=== PATIENT | male | born 1930 | race Caucasian/White ===

== ENCOUNTER 2018-04-29 12:31 | Inpatient (IN) | payer OTHER ==
[~2018-04-29] VITALS: Ht 170.2 cm; Wt 57.2 kg
[~2018-04-29 12:31] MED LIST: AMLO5TAB92 PO; EZET1TAB29 PO; ZOLP12.52 PO
[2018-04-29 12:40] VITALS: BP_SYST 108
--- NOTE | 2018-04-29 12:40 | NUR ---
Placed in room 3 . Placed on surveillance system monitor, blood pressure machine and pulse oximeter. To gown for exam. Side rails up.
--- NOTE | 2018-04-29 12:42 | NUR ---
Pt presents to ER c/o SOB, general weakness, poor appetite, constipation, mild abdominal pain 3/10 on pain scale. Pt denies chest pain or nausea and vomiting. Pt does not appear to be in acute respiratory distress, pt still speaking full sentences, AOX4.
--- NOTE | 2018-04-29 13:10 | NUR ---
ER at bedside examining patient.
[2018-04-29] MEDS ORDERED: ASPIRIN 81 MG TAB.CHEW PO ONE (13:15)
--- NOTE | 2018-04-29 13:25 | NUR ---
20g LAC PIV; good blood return noted; labs drawn and sent to lab; pt livier
--- NOTE | 2018-04-29 13:25 | NUR ---
20g LAC PIV; good blood return noted; blood labs drawn and sent to lab; pt livier and family at bedside ASA 81mg PO given as ordered; will continue to monitor
[2018-04-29 13:40] LABS: BASOPHILS % (AUTO) 0.3 % (0.0-2.0); EOSINOPHILS # (AUTO) 0.3 K/uL (0.0-0.4); HEMATOCRIT 42.7 % (36-54); HEMOGLOBIN 14.6 g/dL (14.0-18.0); LYMPHOCYTES # (AUTO) 1.1 K/uL (1.0-5.5); LYMPHOCYTES % (AUTO) 11.5 % (20.5-51.5); MEAN CORPUSCULAR HEMOGLOBIN 34 pg (27-31); MEAN CORPUSCULAR HGB CONC 34 % (32-36); MEAN CORPUSCULAR VOLUME 99 fL (79.0-98.0); MONOCYTES # (AUTO) 1.1 K/uL (0.0-1.0); MONOCYTES % (AUTO) 10.6 % (1.7-9.3); NEUTROPHILS # (AUTO) 7.5 K/uL (1.8-7.7); NEUTROPHILS % (AUTO) 74.6 % (40.0-70.0); PLATELET COUNT (AUTO) 362 K/uL (130-430); RED CELL DISTRIBUTION WIDTH 12.7 % (9.0-15.0)
[2018-04-29 13:48] LABS: ANION GAP 13 (5-15); CALCIUM 9.6 mg/dL (8.4-11.0); CHLORIDE 101 mmol/L (98-107); CREATININE 3.55 mg/dL (0.55-1.30); GLUCOSE 116 mg/dL (70-99); SODIUM SERUM 136 mmol/L (136-145); UREA NITROGEN, BLOOD 75 mg/dL (8-21)
[2018-04-29 13:53] LABS: ALANINE AMINOTRANSFERASE 20 U/L (12-78); ASPARTATE AMINOTRANSFERASE 21 U/L (10-37); TOTAL BILIRUBIN 0.7 mg/dL (0.0-1.0)
[2018-04-29 13:57] LABS: INR 1.1 (0.80-1.20); PROTHROMBIN TIME 11.3 SECS (9.5-12.5)
[2018-04-29] MEDS ORDERED: CALC667T5 PO (14:18)
[2018-04-29] MEDS ORDERED: AMLO2.5T2 PO (14:18)
[2018-04-29] MEDS ORDERED: TRAZ-123 PO (14:18)
[2018-04-29] MEDS ORDERED: DORZ10DR8 OP (14:18)
[2018-04-29] MEDS ORDERED: BRI.2% OP (14:18)
[2018-04-29] MEDS ORDERED: LIP40 PO (14:18)
[2018-04-29] MEDS ORDERED: TRAV2.5D OP (14:18)
[2018-04-29] MEDS ORDERED: VITD2000 PO (14:22)
--- NOTE | 2018-04-29 14:23 | NUR ---
Medication reconciliation completed with information provided by pt. Any prior medication reconciliation on file was reviewed and corrected.
--- NOTE | 2018-04-29 15:05 | NUR ---
Transfer to tele via ACLS protocol. Licensed nurse present. IV present no signs or symptoms of infiltration.
--- NOTE | 2018-04-29 15:05 | NUR ---
Patient will be admitted to care of Dr. Simpson. Admitted to tele unit. Will go to room 122b. Belongings list completed. Summary report printed. Report will be given at bedside.
--- NOTE | 2018-04-29 15:29 | NUR ---
Admission Note Received patient from ER with diagnosis of RENAL FAILURE. Initial Plan of Care discussed-patient verbalized understanding. Family at bedside. Oriented to room, call light, pain management and safety.
[2018-04-29 15:40] VITALS: BP_SYST 159
--- NOTE | 2018-04-29 15:49 | NUR ---
CONSULTATION PAGED/CALLED Reason for Consultation: [] ACUTE RENAL FAILURE; ELEVATED BUN AND CREA Person Who was Notified: [] DR Marcelino RENEE Consulting Physician: [] DR Marcelino RENEE Sales Counselor Specialty: [] NEPHROLOGY Ordering Physician: [] DR Jasbir NAQVI
--- NOTE | 2018-04-29 16:11 | NUR ---
RN Note Dr. Simpson called for orders. Will follow up.
--- NOTE | 2018-04-29 16:11 | NUR ---
ATTENDING MD DR NAQVI WAS PAGED RE: DIET ORDER. SPOKE TO DEON
--- NOTE | 2018-04-29 17:23 | NUR ---
REPAGED ATTENDING MD DR NAQVI RE: DIET ORDER AND BREATHING TX. SPOKE TO VITO
--- NOTE | 2018-04-29 17:25 | NUR ---
Rounds Spoke with Dr. Simpson. Orders were received.
[2018-04-29] MEDS ORDERED: IPRATROPIUM/ALBUTEROL SULFATE 3 ML AMPUL.NEB INH PRN (18:00)
--- NOTE | 2018-04-29 18:50 | NUR ---
Closing Note Patient is resting in bed. IV is on the LAC 20g saline locked. 02 is at 2l via NC. Patient is having labored breathing at the moment. Dr. Simpson was made aware. Currently waiting for ABG results. Call light is within reach and bed is in low position. Will endorse care to the oncoming nurse.
--- NOTE | 2018-04-29 19:30 | NUR ---
OPENING NOTE PT RECEIVED FROM OUTGOING SHIFT. PT IN BED, AWAKE, ALERT, ORIENTED. INITIALLY OBSERVED WITH USE OF ACCESSORY MUSCLES WITH BREATHING, APPEARS DISTRESSED ON ROOM AIR. PT IS PLACED ON 2L OXYGEN VIA NASAL CANNULA AND SHOWS SOME IMPROVEMENT. PT OTHERWISE DENIES FEELING OF DISTRESS, NO COMPLAINT OF PAIN OR DISCOMFORT. SINUS RHYTHM ON THE CUSTOMER DEVELOPMENT REPRESENTATIVE WITH 1ST DEGREE AV BLOCK. WILL CONTINUE TO OBSERVE THROUGH SHIFT.
[2018-04-29 20:00] VITALS: BP_SYST 171
[2018-04-29] MEDS ORDERED: LEVOFLOXACIN 500 MG/D5W 100 ML IV ONE ×2 (20:00→23:09)
[2018-04-29] MEDS ORDERED: ACETAMINOPHEN 650 MG/20.3 ML UDC PO PRN (20:00)
[2018-04-29] MEDS ORDERED: cloNIDine HCL 0.1 MG TABLET PO PRN (20:00)
[2018-04-29] MEDS: ATORVASTATIN 20 MG TABLET PO SCH (20:58)
[2018-04-29] MEDS: amLODIPine BESYLATE 10 MG TABLET PO SCH (20:58)
[2018-04-29] MEDS: methylPREDNISolone SOD SUCC/PF 62.5 MG/ML VIAL IVP SCH (20:58)
[2018-04-29] MEDS: traZODone HCL 50 MG TABLET (DESYREL) PO SCH (20:58)
[2018-04-29] MEDS ORDERED: amLODIPine BESYLATE 10 MG TABLET ONE (20:59)
[2018-04-29] MEDS: BRIMONIDINE TARTRATE 0.2% 5 mL EYE DROPS OP SCH (21:00)
[2018-04-29] MEDS ORDERED: methylPREDNISolone SOD SUCC/PF 62.5 MG/ML VIAL ONE (21:01)
[2018-04-29] MEDS: D5NS 1,000 ML IV SCH (21:22)
[2018-04-29 22:00] VITALS: BP_SYST 171
--- NOTE | 2018-04-29 22:00 | NUR ---
IV ACCESS INITIATED NEW IV ACCESS ON LEFT FOREARM 20G IN 2 ATTEMPTS. PT TOLERATED PROCEDURE WELL. ACCESS PLACED FOR EASE OF IV INFUSION.
[2018-04-29] MEDS ORDERED: LEVOFLOXACIN 250 MG/D5W 50 ML IV ONE (22:42)
--- NOTE | 2018-04-29 23:22 | NUR ---
CONSULTATION PAGED REASON FOR CONSULTATION: HYPOXIA WAS CONSULT CALLED? Y PERSON WHO WAS NOTIFIED: ROCKY CONSULTING PHYSICIAN: DR. HOWARD CONSULTING PHYSICIAN'S NUMBER: [phone] ORDERING PHYSICIAN: DR. RENEE
[2018-04-29 23:30] VITALS: BP_SYST 90
--- NOTE | 2018-04-29 23:30 | NUR ---
PT CONDITION OBSERVED HEART RATE FLUCTUATING FROM 40'S TO 50'S. OBSERVED AN IRREGULAR RHYTHM WITH WHAT APPEARS TO BE CONSISTENT WITH 1ST DEGREE HEART BLOCK, AN OCCASIONAL NON-CONDUCTIVE P WAVE, AND PAC'S. BLOOD PRESSURE DROP OBSERVED TO 90/48 AFTER RECEIVING CLONIDINE AND NORVASC FOR PREVIOUSLY ELEVATED BLOOD PRESSURE. PT IS ASYMPTOMATIC CLAIMING TO FEEL "NO DIFFERENT" WILL CONTINUE TO MONITOR AND OBSERVE CLOSELY.
[2018-04-30] VITALS (7 sets, daily range): BP systolic 92–121
[2018-04-30] MEDS: methylPREDNISolone SOD SUCC/PF 62.5 MG/ML VIAL IVP SCH ×4 (00:09→21:19)
--- NOTE | 2018-04-30 01:30 | NUR ---
ROUNDS CHECKED PATIENT'S BLOOD PRESSURE. REMAINS STABLE AT LOW. REMAINS ASYMPTOMATIC. WILL CONTINUE TO OBSERVE.
--- NOTE | 2018-04-30 03:30 | NUR ---
ROUNDS PT IN BED SLEEPING. NO SIGNS OF DISTRESS, NO PAIN OR DISCOMFORT. NO CHANGES/DIFFERENCES IN HR/BP. PT REMAINS ASYMPTOMATIC. WILL CONTINUE TO OBSERVE.
--- NOTE | 2018-04-30 05:30 | NUR ---
ROUNDS PT IN BED SLEEPING. NO SIGNS OF DISTRESS, NO PAIN OR DISCOMFORT. NO CHANGES/DIFFERENCES IN HR/BP. PT REMAINS ASYMPTOMATIC. WILL CONTINUE TO OBSERVE.
--- NOTE | 2018-04-30 06:40 | NUR ---
CLOSING NOTE PT IN BED, RESTING. NO SIGNS OF DISTRESS, NO COMPLAINT OF PAIN OR DISCOMFORT. BLOOD PRESSURE REMAINS LOW, STABLE. PT IS ASYMPTOMATIC. CARE TO RESUME TO NEXT SHIFT.
[2018-04-30 06:41] LABS: BASOPHILS % (AUTO) 0.1 % (0.0-2.0); EOSINOPHILS % (AUTO) 0.3 % (0.0-4.0); HEMATOCRIT 38.3 % (36-54); HEMOGLOBIN 13.1 g/dL (14.0-18.0); LYMPHOCYTES # (AUTO) 0.5 K/uL (1.0-5.5); LYMPHOCYTES % (AUTO) 7.8 % (20.5-51.5); MEAN CORPUSCULAR HEMOGLOBIN 34 pg (27-31); MEAN CORPUSCULAR HGB CONC 34 % (32-36); MEAN CORPUSCULAR VOLUME 100 fL (79.0-98.0); MONOCYTES # (AUTO) 0.1 K/uL (0.0-1.0); MONOCYTES % (AUTO) 1.3 % (1.7-9.3); NEUTROPHILS # (AUTO) 6.4 K/uL (1.8-7.7); NEUTROPHILS % (AUTO) 90.5 % (40.0-70.0); PLATELET COUNT (AUTO) 298 K/uL (130-430); RED BLOOD CELL COUNT(AUTO) 3.83 MIL/uL (4.2-6.2); RED CELL DISTRIBUTION WIDTH 12.7 % (9.0-15.0)
[2018-04-30 06:52] LABS: ALANINE AMINOTRANSFERASE 18 U/L (12-78); ALBUMIN 2.5 g/dL (3.4-4.8); ANION GAP 15 (5-15); ASPARTATE AMINOTRANSFERASE 24 U/L (10-37); CALCIUM 8.3 mg/dL (8.4-11.0); CHLORIDE 101 mmol/L (98-107); CREATININE 3.63 mg/dL (0.55-1.30); GLUCOSE 194 mg/dL (70-99); PHOSPHORUS 4.7 mg/dL (2.7-4.5); SODIUM SERUM 136 mmol/L (136-145); TOTAL BILIRUBIN 0.6 mg/dL (0.0-1.0); UREA NITROGEN, BLOOD 77 mg/dL (8-21)
[2018-04-30 06:57] LABS: INR 1.1 (0.80-1.20); PROTHROMBIN TIME 11.5 SECS (9.5-12.5)
--- NOTE | 2018-04-30 07:45 | NUR ---
OPENING NOTE: MORNING REPORT WAS TAKEN FROM SOFTWARE PROGRAMMER NURSE. PATIENT IS ALERT AND ORIENTED X4. PATIENT IS AWAKE. VITALS AND MORNING ASSESSMENT WAS DONE. PATIENT NOT COMPLAINING OF SHORTNESS OF BREATH. PATIENT ON 2L NC. PATIENT NOT COMPLAINING OF COUGH. PATIENT NOT COMPLAINING OF NAUSEA/VOMITING. PATIENT SAID HE JUST HAS A SORE THROAT. FLUIDS ARE INFUSING. BED ALARM IS ON AND CALL LIGHT IS IN REACH. WILL CONTINUE TO MONITOR.
[2018-04-30] MEDS ORDERED: amLODIPine BESYLATE 5 MG TABLET PO SCH (09:00)
[2018-04-30] MEDS: amLODIPine BESYLATE 10 MG TABLET PO SCH (09:00)
[2018-04-30] MEDS: BRIMONIDINE TARTRATE 0.2% 5 mL EYE DROPS OP SCH ×3 (09:00→21:19)
--- NOTE | 2018-04-30 09:14 | NUR ---
NOTE: WENT TO GIVE PATIENT MORNING EYE DROPS BUT PATIENT SAID HE ALREADY TOOK HIS EYE DROPS. SOME ONE TOLD HIM THAT HE WOULD TAKE HIS OWN EYE DROPS AND THAT HIS OTHER MEDICATIONS TO TAKE HOME. DID NOT GIVE EYE DROPS. WILL PUT EYE DROPS IN [facility] AND TRY TO GET DR TO VERIFY SO PATIENT CAN TAKE THOSE HOME TOO. Addendum: 04/30/18 at 0917 by Lily Dietz RN TOLD DR. REENE ABOUT PATIENT'S BLOOD PRESSURE AND ASKED HIM IF HE WANTED ME TO GIVE NORVASC. SAID NOT TO GIVE.
[2018-04-30] MEDS ORDERED: TUBERCULIN,PURIF.PROT.DERIV. 0.1 ML SYR ID ONE (09:15)
--- NOTE | 2018-04-30 09:17 | NUR ---
CONSULTATION CALLED REASON FOR CONSULTATION:PERMCATH PLACEMENT WAS CONSULT CALLED?Y PERSON WHO WAS NOTIFIED:RAQUEL CONSULTING PHYSICIAN:ROBERTO TUBBS QUILTING MACHINE OPERATOR SPECIALTY:SURGEON QUILTING MACHINE OPERATOR PHONE NUMBER:[phone] ORDERING PHYSICIAN:GIGI BARGER
--- NOTE | 2018-04-30 09:24 | NUR ---
NOTE: DR. VARMA CALLED AND SAID TO HAVE PATIENT NPO FROM NOW AND GET CONSENT FOR TUNNELED CATH. PROCEDURE WILL BE LATER ON TODAY.
--- NOTE | 2018-04-30 10:36 | NUR ---
Nutrition Update Neo Scale 16 noted. Pt admitted for renal failure. Diet: NPO BMI: 15.8 kg/m2 RD to follow per nutrition care standards.
--- NOTE | 2018-04-30 10:38 | NUR ---
CONSULTATION CALLED REASON FOR CONSULTATION:COPD WAS CONSULT CALLED?Y PERSON WHO WAS NOTIFIED:ROCKY CONSULTING PHYSICIAN:ARSALAN GABRIEL JAVA SUPPORT ENGINEER SPECIALTY:PULMONARY JAVA SUPPORT ENGINEER PHONE NUMBER:[phone] ORDERING PHYSICIAN:DOM FARMER
--- NOTE | 2018-04-30 11:15 | NUR ---
NOTE: PATIENT LEFT TO CT. PATIENT BEING TRANSFERRED TO ROOM 108 WHILE GONE.
--- NOTE | 2018-04-30 11:40 | NUR ---
NOTE: PATIENT BACK FROM CT IN ROOM 108. HOOKED PATIENT UP TO FLUIDS. BED ALARM ON AND CALL LIGHT IN REACH. WILL CONTINUE TO MONITOR.
--- NOTE | 2018-04-30 11:55 | NUR ---
NOTE: PATIENT WAS COMPLAINING OF SEVERE PAIN. GAVE PAIN MEDICATION. PATIENT HAS NO FURTHER REQUEST AT MOMENT. WILL CONTINUE TO MONITOR. Addendum: 04/30/18 at 1331 by Lily Dietz RN WRONG PATIENT
[2018-04-30] MEDS: D5NS 1,000 ML IV SCH (12:44)
--- NOTE | 2018-04-30 12:55 | NUR ---
NOTE: CALL FROM CT THAT PATIENT HAD CRITICAL CT RESULTS. DID NOT TELL ME WHAT WAS CRITICAL ABOUT IT THOUGH.
--- NOTE | 2018-04-30 14:25 | NUR ---
: DR. HOWARD AWARE OF PATIENT'S CT RESULTS.
--- NOTE | 2018-04-30 15:13 | NUR ---
NOTE: WENT TO GIVE PATIENT EYE DROPS THAT WERE SCHEDULED. PATIENT REFUSED AND SAID HE TAKES THEM AT 9 AT NIGHT. WILL LET KNOW.
--- NOTE | 2018-04-30 15:41 | NUR ---
NOTE: PATIENT LEFT FOR SURGERY ON 2L NC.
--- NOTE | 2018-04-30 16:15 | NUR ---
NOTE: PATIENT BACK FROM OR. DIDNT DO PROCEDURE AFTER ALL. SAID HAD AN EMERGENCY AND WILL PROBABLY DO IT LATER.
--- NOTE | 2018-04-30 17:20 | NUR ---
NOTE: WAS NOTIFIED THAT SURGERY WILL BE SCHEDULED FOR TOMORROW MORNING INSTEAD.
--- NOTE | 2018-04-30 19:15 | NUR ---
OPENING NOTES Late entry due to patient care. Bedside report received from day shift nurse. Patient received lying in bed, HOB raised, AOx4. Patient denies any pain at this time. Nasal canula attached properly, on 2L of oxygen, no SOB, breathing even and unlabored. Call light with patient, instructed to call for any assistance, patient verbalized understanding. Bed alarm is on. IVF infusing well, IV site shows no sings of infection or infiltration. Urinal within reach. All of patient's needs met at this time. Will continue to monitor.
--- NOTE | 2018-04-30 19:37 | NUR ---
CLOSING NOTE: GAVE REPORT TO ACQUISITION SPECIALIST NURSE. PATIENT ON 2L NC NOT COMPLAINING OF SHORTNESS OF BREATH. PATIENT HAS FLUIDS INFUSING. PATIENT HAS SCD'S ON. ENDORSED TO ACQUISITION SPECIALIST NURSE THAT PATIENT HAD TB/PPD TEST TODAY AND SHOULD BE READ THURSDAY. CIRCLED AREA WHERE BUBBLE WAS. PATIENT SCHEDULED FOR SURGERY TOMORROW. PAPERS SIGNED. VISITOR AT BEDSIDE. BED ALARM IS ON AND CALL LIGHT IS IN REACH.
--- NOTE | 2018-04-30 21:00 | NUR ---
ROUNDS Patient in bed at this time. Patient's son, Robbin, present at bedside. Patient shows no s/s of acute distress. Patient denies any pain. Breathing is even and unlabored. Call light with patient. Bed alarm is on. Will continue to monitor.
[2018-04-30] MEDS: ATORVASTATIN 20 MG TABLET PO SCH (21:20)
[2018-04-30] MEDS: traZODone HCL 50 MG TABLET (DESYREL) PO SCH (21:20)
--- NOTE | 2018-04-30 23:00 | NUR ---
ROUNDS Patient in bed watching TV. No signs of discomfort noted. HOB raised, nasal canula attached properly, on 2L of oxygen. Chest rise and fall even bilaterally. Call light with patient. Bed alarm on. Will continue to monitor.
--- NOTE | 2018-05-01 | NUR ---
NPO/ROUNDS Patient in bed resting at this time. NPO cone placed at patient's bedside table. Patient informed that he is now NPO in preparation for tomorrow's operation, patient verbalized understanding. RN, removed all fluids on bedside table. Patient shows no s/s of acute distress, denies any pain. Breathing is even and unlabored. Nasal canula attached properly. Call light with patient. Bed alarm on. Will continue to monitor.
[2018-05-01 00:07] VITALS: BP_SYST 113
--- NOTE | 2018-05-01 01:35 | NUR ---
ROUNDS Patient in bed sleeping at this time. NO signs of discomfort noted. Chest rise and fall even bilaterally. Call light within reach. Bed alarm on. Will continue to monitor.
[2018-05-01] MEDS: D5NS 1,000 ML IV SCH ×2 (02:55→22:39)
--- NOTE | 2018-05-01 03:00 | NUR ---
LOW HEART RATE Tech monitor informed RN that heart rate is at 35-40 beats per minute. RN woke patient up, patient AOx4, denies any pain, denies any dizziness or light headedness. Patient states "I feel fine". Call light with patient, instructed to call for any assistance, patient verbalized understanding. Bed alarm is on. Bed is locked and at lowest position. Will continue to monitor and reassess.
--- NOTE | 2018-05-01 05:00 | NUR ---
ROUNDS Patient in bed awake, denies any pain. No signs of discomfort noted. Nasal canula attached properly, on 2L oxygen. Chest rise and fall even bilaterally. IVF infusing well. SCDs attached, operating. Call light with patient, bed alarm on. Bed is locked and at lowest position. Will continue to monitor.
[2018-05-01] MEDS: methylPREDNISolone SOD SUCC/PF 62.5 MG/ML VIAL IVP SCH ×2 (05:17→20:33)
--- NOTE | 2018-05-01 06:28 | NUR ---
CLOSING NOTES Patient in bed resting at this time. No s/s of acute distress noted. Breathing is even and unlabored. IVF infusing well. IV sites are patent, no signs of infection or infiltration. SCDs attached and operating. HOB raised. All of patient's needs met throughout shift. Fall and safety precautions maintained throughout shift. Will continue to monitor until patient care is endorsed to oncoming day shift nurse.
--- NOTE | 2018-05-01 07:30 | NUR ---
AM ROUNDS: PATIENT AWAKE DURING ROUNDS. REPORT GIVEN BY NIGHT NURSE BEAU. CALL LIGHT WITH IN REACH. BED LOCKED AT LOWEST POSITION. NEEDS ATTENDED TO. Addendum: 05/01/18 at 0808 by Sharon Deal RN CORRECTED ABOVE NOTES: CORRECT NURSE WAS ALEX FROM TUBE SPLICER.
[2018-05-01 08:00] VITALS: BP_SYST 113
--- NOTE | 2018-05-01 08:03 | NUR ---
OR: TO OR PER KELSI,PATIENT IN STABLE CONDITION.PREOP CHECK LIST DONE.CHG DONE BY INTERNAL AUDIT SENIOR MANAGER.BEDSIDE REPORT GIVEN TO RICHY OR NURSE.
[2018-05-01] MEDS ORDERED: POLYMYXIN 500,000/BACIT.10,000 UNITS in NS IRR 1 L IR ONE (08:25)
[2018-05-01] MEDS: amLODIPine BESYLATE 5 MG TABLET PO SCH (09:00)
[2018-05-01] MEDS ORDERED: fentaNYL CITRATE/PF 100 MCG/2 ML AMP IVP PRN ×2 (10:00)
[2018-05-01] MEDS ORDERED: ONDANSETRON HCL 4 MG/2 ML VIAL IVP PRN (10:00)
[2018-05-01] MEDS ORDERED: MIDAZOLAM HCL 5 MG/ML VIAL (VERSED) IV ONE (10:15)
[2018-05-01] MEDS ORDERED: GLYCOPYRROLATE 0.2 MG/ML VIAL ONE (10:15)
[2018-05-01] MEDS ORDERED: PROPOFOL 200MG/ 20ML VIAL (DIPRIVAN) IV ONE (10:15)
[2018-05-01] MEDS ORDERED: HEPARIN SODIUM, PORCINE 10,000 UNITS/ 10 ML VIAL ONE (10:15)
[2018-05-01] MEDS ORDERED: CEFAZOLIN 2 GM IVPB PREMIX 50 ML IV ONE (10:15)
[2018-05-01] MEDS ORDERED: BUPIVACAINE /EPINEPHRINE/PF 0.25% 30 ML VIAL INJ ONE (10:15)
[2018-05-01] MEDS ORDERED: NS IRRIG SOLN 1000 ML IR ONE (10:15)
[2018-05-01] MEDS ORDERED: NS 1000 ML IV.SOLN IV ONE (10:15)
[2018-05-01] MEDS ORDERED: NS 100 ML BAG ONE (10:15)
--- NOTE | 2018-05-01 10:48 | NUR ---
Consult MD: Cardio Dr. Gil called spoke to randi dialed [phone] Calderon
--- NOTE | 2018-05-01 10:50 | NUR ---
POST OP NOTES: ROUTINE POST OP VITAL SIGNS TAKEN,AFEBRILE. WITH DRESSING AT LEFT IJ,SOAK WITH BLOOD,MODERATE AMOUNT. TO OBSERVED FOR ANY ACTIVE BLEEDING. PATIENT AWAKE,ALERT AND ORIENTED X4. FAMILY AT THE BEDSIDE. BEDSIDE REPORT GIVEN BY PACU NURSE SOONY.POST RIGHT ARM AV SHUNT,SMALL DRESSING DRY AND INTACT.
[2018-05-01 11:00] VITALS: BP_SYST 110
--- NOTE | 2018-05-01 11:14 | NUR ---
SURGEON PAGED: CALLED DR VARMA'S EXCHANGE AND SPOKE WITH NEENA FOR DIET ORDER POST PERMA CATHETER PLACEMENT.
--- NOTE | 2018-05-01 11:30 | NUR ---
NEW ORDER: SPOKE WITH DR VARMA WITH ORDERS RESUMED REGULAR DIET AND CALLED DIETARY FOR NEW ORDERS.
--- NOTE | 2018-05-01 12:30 | NUR ---
MEAL: WITH FAMILY AT THE BEDSIDE. LUNCH TRAY SERVED.
--- NOTE | 2018-05-01 12:41 | NUR ---
SURGEON PAGED: CALLED DR VARMA'S EXCHANGE AND SPOKE WITH LIN FOR PERMA CATHETER DRESSING SOAK WITH BLOOD,REINFORCED WITH 4X4 GAUZE AT THE SITE,OBSERVED FOR ACTIVE BLEEDING. WAITING FOR SURGEONS CALL BACK.
--- NOTE | 2018-05-01 14:10 | NUR ---
MD CLIFTON CALLED [facility] AT SPOKE WITH DR.REZVANI BREWSTER FARHAD ENGRAVER WOOD.
--- NOTE | 2018-05-01 14:30 | NUR ---
NEPHRO: SPOKE WITH NEPHRO AND INFORMED LEFT IJ SOAK MODERATELY WITH BLOOD AND BRUISE RIGHT AV SHUNT(NEW PLACED),SAND BAG APPLIED TO LEFT IJ AND NO NEW ORDERS MADE.
--- NOTE | 2018-05-01 14:37 | NUR ---
Dietitian Recommendations *Recommend [facility] Renal Standard w/ Nepro BID. Oral supplement will provide 850 kcal and 38 g protein daily. *Encourage pt to increase oral intake. Please see Nutritional Assessment for details. KYMBERLY, RD
[2018-05-01] MEDS: BRIMONIDINE TARTRATE 0.2% 5 mL EYE DROPS OP SCH ×2 (15:00→20:32)
[2018-05-01] MEDS: HYDROcodone/ACETAMIN 5-325 MG TAB (NORCO/ VICODIN) PO PRN (15:22)
--- NOTE | 2018-05-01 15:34 | NUR ---
PAIN MEDS: C/O PAIN AND DUEPO PAIN MEDS GIVEN PER REQUEST.NO COMPLICATIONS NOTED.
--- NOTE | 2018-05-01 16:20 | NUR ---
SURGEON PAGED: CALLED DR VARMA'S EXCHANGE AND SPOKE WITH LIN.STILL WAITING FOR HIS CALL BACK.
[2018-05-01 16:57] VITALS: BP_SYST 134
--- NOTE | 2018-05-01 18:00 | NUR ---
HEMODIALYSIS: HD STARTED BY BRONSON AT LEFT IJ PERMA CATHETER,STILL MODERATELY SOAK WITH BLOOD BUT NOT ACTIVELY BLEEDING.CONTINUE TO MONITOR. STABLE.
--- NOTE | 2018-05-01 19:00 | NUR ---
CLOSING NOTES: BEDSIDE REPORT GIVEN TO NIGHT NURSE ALEX,PATIENT WITH HEMODIALYSIS ON GOING.STABLE VITAL SIGNS.CONTINUE TO MONITOR FOR ANY BLEEDING.MULTIPLE CALLS MADE TO THE SURGEON,UNTIL NOW NOT RESPONDED YET. ENDORSED TO NIGHT NURSE TO KEEP CALLING THE SURGEON UNTIL HE CALLS BACK.
--- NOTE | 2018-05-01 19:15 | NUR ---
OPENING NOTES Late entry due to patient care. Bedside report received from day shift nurse. Patient received AOx4, lying in bed, hemodialysis being conducted. IJ site covered with 4x4 dressing, currently soaked with blood. IVF infusing well. Dayshift nurse has paged the surgeon, Dr. Calderon. SCDs attached and operating. Patient denies any pain at this time. Call light with patient, instructed to call for any assistance, patient gave RN a thumbs up. Bed alarm is on. Bed is locked and at lowest position. Will continue to monitor.
[2018-05-01 20:00] VITALS: BP_SYST 124
--- NOTE | 2018-05-01 20:10 | NUR ---
HEMODIALYSIS FINISHED Hemodialysis nurse, [place], made RN, Elmo, aware that hemodialysis is finished. Patient had 0 ml output. [place] changed the dressing on IJ site. No active bleeding noted at this time. Patient denies any pain. No s/s of acute distress noted. Nasal canula attached properly, on 2L of oxygen. Breathing is even and unlabored. HOB is raised. Vitals are stable. Call light with patient, bed alarm on. Will continue to monitor.
[2018-05-01] MEDS: ATORVASTATIN 20 MG TABLET PO SCH (20:32)
[2018-05-01] MEDS: traZODone HCL 50 MG TABLET (DESYREL) PO SCH (20:32)
[2018-05-01] MEDS: LEVOFLOXACIN 250 MG/D5W 50 ML IV SCH (20:33)
--- NOTE | 2018-05-01 22:00 | NUR ---
IJ SITE BLEEDING 4x4 dressing on IJ site is soaked with blood. Sandbags applied to the area. Will continue to monitor and reassess.
[2018-05-02] VITALS (7 sets, daily range): BP systolic 126–139
--- NOTE | 2018-05-02 | NUR ---
ROUNDS Patient in bed awake, watching TV. No s/s of acute distress noted. Patient denies any pain. Breathing is even and unlabored. No signs of active bleeding noted. Dressing on neck is clean and dry, no drainage noted. Call light with patient. Bed alarm is on. Bed is locked and at lowest position. Will continue to monitor.
--- NOTE | 2018-05-02 02:00 | NUR ---
ROUNDS Patient in bed watching TV. No signs of discomfort noted. Chest rise and fall even bilaterally. Dressing on neck is clean and dry with no signs of drainage. No active bleeding noted. Patient denies any pain. Call light with patient. Bed alarm on. Will continue to monitor.
[2018-05-02] MEDS: D5NS 1,000 ML IV SCH (02:56)
--- NOTE | 2018-05-02 03:15 | NUR ---
DRESSING CHANGED Bleeding noted on neck dressing. 4x4 dressing was soaked with blood. New 4x4 dressing placed, secured with paper tape. Placed 2 pound sand bag over dressing. Patient denies any pain, dizziness, or light headedness. Breathing is even and unlabored. IVF infusing well. Call light with patient, instructed to call for any assistance, patient verbalized understanding. Bed alarm is on. Will continue to monitor.
--- NOTE | 2018-05-02 05:00 | NUR ---
ROUNDS Patient in bed awake, watching TV. No signs of discomfort noted. Chest rise and fall even bilaterally. Patient denies any pain, no dizziness, or light headedness. Dressing on neck attached, clean and dry, with signs of slight bleeding. IVF infusing well. Call light with patient. Bed alarm is on. Will continue to monitor.
--- NOTE | 2018-05-02 06:27 | NUR ---
CLOSING NOTES Patient in bed watching TV at this time. No s/s of acute distress noted. Patient denies any pain, no dizziness, or light headedness. Breathing is even and unlabored, nasal canula attached properly, on 2L of oxygen. Neck dressing is intact, clean and dry, with slight bleeding noted, sandbags placed on top of dressing. IVF infusing well, IV site shows no signs of infiltration or infection. All of patient's needs met throughout shift. Fall and safety precautions maintained throughout shift. Will continue to monitor until patient care is endorsed to oncoming day shift nurse.
[2018-05-02 07:09] LABS: ANION GAP 11 (5-15); CHLORIDE 105 mmol/L (98-107); CREATININE 2.22 mg/dL (0.55-1.30); GLUCOSE 272 mg/dL (70-99); SODIUM SERUM 139 mmol/L (136-145); UREA NITROGEN, BLOOD 51 mg/dL (8-21)
[2018-05-02 07:16] LABS: CALCIUM 6.9 mg/dL (8.4-11.0)
--- NOTE | 2018-05-02 07:20 | NUR ---
AM ROUNDS: BEDSIDE REPORT GIVEN BY NIGHT NURSE ALEX.WITH SAND BAG X2 AT LEFT IJ FOR BLEEDING,DRESSING CLEAN AND DRY FOR NOW. RIGHT ARM BLUISH DISCOLORATION AND MILD SWELLING. ON O2 2L/NC,GOOD SATURATION. IVF ON GOING AT LEFT FOREARM INTACT.CALL LIGHT WITH IN REACH. BED LOCKED AT LOWEST POSITION AND BED ALARM ON.
[2018-05-02 07:38] LABS: HEMATOCRIT 35.5 % (36-54); HEMOGLOBIN 12.5 g/dL (14.0-18.0); LYMPHOCYTES # (AUTO) 0.5 K/uL (1.0-5.5); LYMPHOCYTES % (AUTO) 2.3 % (20.5-51.5); MEAN CORPUSCULAR HEMOGLOBIN 35 pg (27-31); MEAN CORPUSCULAR HGB CONC 35 % (32-36); MEAN CORPUSCULAR VOLUME 100 fL (79.0-98.0); MONOCYTES % (AUTO) 4.5 % (1.7-9.3); NEUTROPHILS # (AUTO) 20.6 K/uL (1.8-7.7); NEUTROPHILS % (AUTO) 93.2 % (40.0-70.0); PLATELET COUNT (AUTO) 261 K/uL (130-430); RED BLOOD CELL COUNT(AUTO) 3.55 MIL/uL (4.2-6.2)
[2018-05-02 08:06] LABS: WHITE BLOOD COUNT (AUTO) 22.1 K/uL (4.8-10.8)
--- NOTE | 2018-05-02 08:28 | NUR ---
surgeon rounds: patient seen by dr cardenas and examined right av shunt,positive thrill with large bluish discoloration ,md aware and also with the scanty bleeding from the left ij dressing,sand bag over it wt 4lbs. no new orders made,close monitoring.
[2018-05-02] MEDS: methylPREDNISolone SOD SUCC/PF 62.5 MG/ML VIAL IVP SCH (08:41)
[2018-05-02] MEDS: amLODIPine BESYLATE 5 MG TABLET PO SCH (08:43)
[2018-05-02] MEDS: BRIMONIDINE TARTRATE 0.2% 5 mL EYE DROPS OP SCH ×3 (08:45→20:09)
--- NOTE | 2018-05-02 09:05 | NUR ---
SURGEON ROUNDS: DR VARMA CHANGED LEFT IJ DRESSING ASEPTICALLY,CLEANSE WITH POVIDINE SWAB THEN PUT ON OPTI FOAM AND PAPER TAPE APPLIED OVER IT. Addendum: 05/02/18 at 1205 by Sharon Deal RN ADDED NOTES: SHOWED AGAIN TO DR VARMA THE LEFT IJ DRESSING SOAKED WITH BLOOD THIS TIME THEN CHANGED IJ DRESSING.
[2018-05-02 11:08] LABS: HEPATITIS B SURFACE AG Negative (Negative); HEPATITIS C VIRUS AB 0.1 s/co ratio (0.0-0.9)
[2018-05-02] MEDS: ASPIRIN 81 MG TABLET(ECOTRIN) PO SCH (11:55)
--- NOTE | 2018-05-02 11:58 | NUR ---
DRESSING LEFT IJ: CHECKED LEFT IJ ,SCANTY BLEED THIS TIME.NO ACTIVE BLEEDING NOTED.
[2018-05-02] MEDS ORDERED: CALCIUM GLUCONATE 1 GM in NS 100 ML IV ONE (14:45)
--- NOTE | 2018-05-02 15:30 | NUR ---
CALCIUM GLUCONATE IVPB: CALCIUM GLUCONATE IV 1 GRAM GIVEN ORDERED BY DR RENEE FOR LOW CALCIUM LEVEL.
--- NOTE | 2018-05-02 15:41 | NUR ---
RN ROUNDING: CHECKED LEFT IJ DRESSING,STILL THE SAME EARLIER,OLD BLOOD STAINED,INTACT.VITAL SIGNS TAKEN.AFEBRILE.
--- NOTE | 2018-05-02 18:30 | NUR ---
CLOSING NOTES: EATING HIS DINNER. STILL WITH SAME LEFT IJ DRESSING,OLD BLOOD STAINED,INTACT,OBSERVE FOR ACTIVE BLEEDING.WILL ENDORSED TO INCOMING NIGHT NURSE PATIENT STABLE.
--- NOTE | 2018-05-02 19:15 | NUR ---
OPENING NOTES Late entry due to patient care. Bedside report received from dayshift nurse. Patient received lying in bed watching TV with two family members. Patient shows no s/s of acute distress. Patient denies any pain at this time. Breathing is even and unlabored. Nasal canula attached properly, on 2L of oxygen. Dressing on neck is intact, clean, with slight bleeding. SCDs are taken off as per patient's request, will continue to encourage throughout shift. IVF infusing well. Will encourage patient to turn every two hours throughout the shift. Call light with patient. Bed alarm is on. Bed is locked and at lowest position. Will continue to monitor.
[2018-05-02] MEDS: ATORVASTATIN 20 MG TABLET PO SCH (20:09)
[2018-05-02] MEDS: traZODone HCL 50 MG TABLET (DESYREL) PO SCH (20:09)
--- NOTE | 2018-05-02 21:00 | NUR ---
DRESSING CHANGED Neck dressing is leaking blood at this time. Neck dressing is soaked with blood. Dressing changed at this time, used non adhesive optifoam and 4x4 dressing and secured with paper tape. Patient denies any pain, no dizziness, no lightheadedness, no trouble breathing. Call light with patient. Bed alarm on. Will continue to monitor.
--- NOTE | 2018-05-02 22:45 | NUR ---
DR ZARATE CALLED RE:HEMODIALYSIS Dr. Zarate called requesting RN to put in order for hemodialysis first thing in the morning, coordinate with hotel houseman to contact [place] dialysis nurse. Will carry out orders.
--- NOTE | 2018-05-02 23:00 | NUR ---
ROUNDS Patient in bed watching TV at this time. No s/s of acute distress noted. Patient denies any pain. Breathing is even and unlabored, nasal canula attached properly, on 2L of oxygen. IVF infusing well, IV site shows no signs of infiltration or infection. Neck dressing intact, clean and dry, no signs of bleeding noted. Call light with patient. Bed alarm on. Will continue to monitor.
[2018-05-03] VITALS: BP_SYST 134
--- NOTE | 2018-05-03 01:00 | NUR ---
ROUNDS Patient in bed sleeping at this time. No signs of discomfort noted. Chest rise and fall even bilaterally. Call light with patient. Bed alarm is on. Bed is locked and at lowest position. Neck dressing intact, clean and dry. Will continue to monitor.
--- NOTE | 2018-05-03 02:30 | NUR ---
BOWEL MOVEMENT Patient requested to be assisted to the bathroom to have a bowel movement. Patient assisted by BOOKMOBILE CLERK to the bathroom and back. Patient's gait is steady, denies any pain, dizziness, or lightheadedness. Call light with patient. Bed alarm on. Will continue to monitor.
[2018-05-03] MEDS: D5NS 1,000 ML IV SCH (04:08)
--- NOTE | 2018-05-03 04:30 | NUR ---
ROUNDS Patient in bed sleeping at this time. NO s/s of acute distress. No signs of active bleeding noted. Breathing is even and unlabored. Call light with patient. Bed alarm on. Will continue to monitor.
--- NOTE | 2018-05-03 06:50 | NUR ---
CLOSING NOTES Patient in bed, sitting up, awake. Patient shows no s/s of acute distress, denies any pain. Breathing even and unlabored, nasal canula attached properly, on 4L of oxygen. SCDs remain off per patient's request. HOB raised. IVF infusing well, IV site shows no signs of infection or infiltration. Neck dressing intact, clean and dry, no signs of active bleeding noted. All of patient's needs met throughout shift. Fall and safety precautions maintained throughout shift. Will continue to monitor until patient care is endorsed to oncoming day shift nurse.
--- NOTE | 2018-05-03 07:25 | NUR ---
Initial Note Received report from the night nurse Elmo. Pt AOX4. No sign of distress noted at this time. Bed is at lowest position with bed alarm on. Call light within reach.
[2018-05-03 07:26] LABS: EOSINOPHILS % (AUTO) 0.1 % (0.0-4.0); HEMATOCRIT 34.7 % (36-54); HEMOGLOBIN 12.1 g/dL (14.0-18.0); LYMPHOCYTES # (AUTO) 0.6 K/uL (1.0-5.5); LYMPHOCYTES % (AUTO) 2.6 % (20.5-51.5); MEAN CORPUSCULAR HEMOGLOBIN 35 pg (27-31); MEAN CORPUSCULAR HGB CONC 35 % (32-36); MEAN CORPUSCULAR VOLUME 100 fL (79.0-98.0); MONOCYTES # (AUTO) 2.2 K/uL (0.0-1.0); MONOCYTES % (AUTO) 9.6 % (1.7-9.3); NEUTROPHILS % (AUTO) 87.7 % (40.0-70.0); PLATELET COUNT (AUTO) 224 K/uL (130-430); RED BLOOD CELL COUNT(AUTO) 3.48 MIL/uL (4.2-6.2); RED CELL DISTRIBUTION WIDTH 13.5 % (9.0-15.0); WHITE BLOOD COUNT (AUTO) 22.8 K/uL (4.8-10.8)
[2018-05-03 07:28] LABS: ALANINE AMINOTRANSFERASE 16 U/L (12-78); ALBUMIN 2.1 g/dL (3.4-4.8); ANION GAP 12 (5-15); ASPARTATE AMINOTRANSFERASE 26 U/L (10-37); CALCIUM 7.4 mg/dL (8.4-11.0); CHLORIDE 108 mmol/L (98-107); CREATININE 2.68 mg/dL (0.55-1.30); GLUCOSE 130 mg/dL (70-99); POTASSIUM 3.4 mmol/L (3.5-5.1); SODIUM SERUM 142 mmol/L (136-145); TOTAL BILIRUBIN 0.3 mg/dL (0.0-1.0); UREA NITROGEN, BLOOD 67 mg/dL (8-21)
[2018-05-03 07:45] VITALS: BP_SYST 153
[2018-05-03] MEDS: ASPIRIN 81 MG TABLET(ECOTRIN) PO SCH (08:45)
[2018-05-03] MEDS: PREDNISONE 20 MG TABLET PO SCH (08:45)
[2018-05-03] MEDS: amLODIPine BESYLATE 5 MG TABLET PO SCH (08:47)
[2018-05-03] MEDS: BRIMONIDINE TARTRATE 0.2% 5 mL EYE DROPS OP SCH ×3 (08:48→20:58)
[2018-05-03] MEDS ORDERED: POTASSIUM CHLORIDE 20 MEQ TAB.PRT.SR PO ONE (09:15)
--- NOTE | 2018-05-03 09:25 | NUR ---
RN Rounds Pt resting and does not show any sign of distress at this time. Bed is at lowest position with bed alarm on. Call light within reach.
--- NOTE | 2018-05-03 11:27 | NUR ---
RN Rounds Pt on hemodialysis. No sign of distress noted at this time. Bed is at lowest position. Call light within reach.
[2018-05-03] MEDS ORDERED: HEPARIN SODIUM, PORCINE 10,000 UNITS/ 10 ML VIAL MC ONE ×3 (12:15→12:30)
--- NOTE | 2018-05-03 12:38 | NUR ---
HCP/CM: OUTPATIENT HEMODIALYSIS SCHEDULE ARRANGEMENTS PER DIALYSIS NURSE BRONSON AT PHONE NUMBER: [phone]. [facility] [place] [address] PHONE NUMBER: [phone] [id number] CHAIR TIME FROM 5PM-8PM PATIENT DECLINED SNF FOR SHORT TERM REHAB PRIOR TO RETURNING HOME AND SAID DAUGHTER NOHEMI LIVES CLOSE BY AND WILL BE HELPING HIM OUT AT HOME. HOME OXYGEN AND PORTABLE OXYGEN FOR TRANSPORT TO HOME, WALKER, AND HOME HEALTH PHYSICAL THERAPY AND NURSING FOR MEDICATION TEACHING IS BEING ARRANGED.
[2018-05-03 13:06] VITALS: BP_SYST 126
--- NOTE | 2018-05-03 13:30 | NUR ---
Dialysis finished. 1 L out
[2018-05-03] MEDS: HYDROcodone/ACETAMIN 5-325 MG TAB (NORCO/ VICODIN) PO PRN (15:09)
--- NOTE | 2018-05-03 15:28 | NUR ---
RN Rounds Pt S/P dialysis. No sign of distress noted at this time. Bed is at lowest position with bed alarm on. Call light within reach.
[2018-05-03 16:48] VITALS: BP_SYST 122
--- NOTE | 2018-05-03 17:15 | NUR ---
Closing Note Pt AOX4. No sign of distress noted at this time. Bed is at lowest position with bed alarm on. Call light within reach. Family member at bedside. Pt has DC planning with home health. Addendum: 05/03/18 at 6 by Duke Tyson RN Pt waiting for consult with Dr. Calderon for right hand ischemia.
--- NOTE | 2018-05-03 17:35 | NUR ---
RN Rounds Pt awake and does not show any sign of distress at this time. Bed is at lowest position with bed alarm on. Call light within reach.
--- NOTE | 2018-05-03 17:58 | NUR ---
HCP/CM: [facility]. PHONE: [phone] TO DELIVER PORTABLE OXYGEN TANK AT BEDSIDE FOR PATIENT'S USE FOR TRANSPORT HOME. [facility] PHONE: [phone] WILL PROVIDE PHYSICAL THERAPY AND NURSING FOR MEDICATION REVIEW. [facility] PHONE: [phone] APPROVED FOR A FWW BUT PATIENT DECLINED THE FWW STATING HE HAS A BRAND NEW WALKER AT HOME PURCHASED PRIVATELY.
--- NOTE | 2018-05-03 18:21 | NUR ---
HCP/CM: DAUGHTER NOHEMI [phone] IS AWARE OF THE DISCHARGE AND ALL THE DME/HH/HD SCHEDULE ARRANGEMENTS AND PROVIDED HER WITH PHONE NUMBERS. DISCUSSED FOLLOW UP WITH PCP, PULMO, AND PALLIATIVE FOR GOALS OF CARE/POLST WILL BE ARRANGED AND ALSO ACM POST DISCHARGE CALLS. WILL ALSO REFER PATIENT TO HCP ESRD PROGRAM. PATIENT WILL GET A CALL AT HOME REGARDING APPOINTMENT SCHEDULE FROM HCP [facility] DEPT.
--- NOTE | 2018-05-03 19:36 | NUR ---
INITIAL NOTES Received report from offgoing nurse at the bedside. Patient is awake and alert, resting comfortably in bed. Daughter is at the bedside. No SOB, no acute distress, no signs of pain or facial grimacing. Breathing is even and unlabored with visible chest rise and fall noted. Right hands are purple in color. Offgoing nurse stated the Dr Simpson is aware, and the patient is still pending to see Dr Calderon regarding the hands. Bed is locked, in the lowest position, 2x side rails up, bed alarm is on. Call light is within reach. Encouraged patient to call for assistance. Will continue with plan of care.
[2018-05-03 20:00] VITALS: BP_SYST 132
--- NOTE | 2018-05-03 20:31 | NUR ---
CONSULTATION PAGED/CALLED Reason for Consultation: ischemia right arm Person Who was Notified: Silvana Consulting Physician: Ramandeep Calderon Manager [facility] Specialty:Surgery Ordering Physician: Calvin
--- NOTE | 2018-05-03 20:50 | NUR ---
Dr Calderon called. Informed Dr Calderon that the patients right hand is purple in color, cold to touch, and has poor cap refill. Dr Calderon made aware with no new orders. Addendum: 05/04/18 at 0159 by Camilla Lopez RN Correction* Dr Calderon made aware with orders to check the pulse using a doppler.
[2018-05-03] MEDS: ATORVASTATIN 20 MG TABLET PO SCH (20:58)
[2018-05-03] MEDS: LEVOFLOXACIN 250 MG/D5W 50 ML IV SCH (20:58)
[2018-05-03] MEDS: traZODone HCL 50 MG TABLET (DESYREL) PO SCH (20:58)
--- NOTE | 2018-05-03 22:30 | NUR ---
Patient's IV dressing on the forearm is soiled in blood. Removed dressing, cleansed site with alcohol, and replaced with new dressing. Dressing is now clean and dry. IV site flushes well.
[2018-05-04] VITALS: BP_SYST 113
--- NOTE | 2018-05-04 00:10 | NUR ---
Patient is sleeping, resting comfortably in bed. No SOB, no acute distress, no signs of pain or facial grimacing. Breathing is even and unlabored with visible chest rise and fall noted. Bed is locked, in the lowest position, 2x side rails up, bed alarm is on. Call light is within reach.
--- NOTE | 2018-05-04 01:30 | NUR ---
Checked the patient's right wrist pulse with a doppler, and compared it to the right AC. Right AC pulse is stronger than in the right wrist. Verified with Charge nurse Niurka. Called Dr Calderon and notified him. Also informed Dr Calderon that there is still a pulse, and that the hand is still purple in color. Dr Calderon stated that it is okay, and to wrap the arm in a blanket to keep it warm.
--- NOTE | 2018-05-04 02:30 | NUR ---
Patient is asleep, resting comfortably in bed. No SOB, no acute distress, no signs of pain or facial grimacing. Breathing is even and unlabored with visible chest rise and fall noted. Call light is within reach.
--- NOTE | 2018-05-04 05:50 | NUR ---
Patient is currently sleeping, no SOB, no acute distress, no signs of pain. Bed is locked, in the lowest position, 2x side rails up, bed alarm is on. IV site dressing clean and dry, saline locked. Call light is within reach.
--- NOTE | 2018-05-04 07:40 | NUR ---
Closing Notes Handoff report given to Micaela at the bedside. Patient is awake and alert, resting comfortably in bed. No SOB, no acute distress, no complaints of pain. IV site is intact, dressing clean and dry. Right hand is still purple in color, Dr Calderon is aware, informed [facility] nurse. Bed is locked, in the lowest position, 2x side rails up, bed alarm is on. Call light is within reach. Addendum: 05/04/18 at 0742 by Caimlla Lopez RN Continuation of notes Fall and safety precautions maintained. All needs have been met during this shift.
--- NOTE | 2018-05-04 07:50 | NUR ---
OPENING NOTES, RECEIVED PT IN BED, PT IS AAOX4, DENIES PAIN, NO SOB, NO RESP DISTRESS. NOTED, L. CHEST PERMACATH, WITH DRESSING BLOODY, NOTED L NECK BRUISING, NOTED R. ARM BRUISING ALSO, PT'S FINGERS AND NAILS ARE PURPLISH IN COLOR. DR VARMA IS AWARE. SAFETY PRECAUTION IN PLACE. CALL LIGHT IN REACH, BED IN LOW POSITION. PT ENCOURAGED TO CALL FOR ASSISTANCE TO BATHROOM AND FOR PAIN MEDICATION. WILL CONT TO MONITOR.
[2018-05-04 08:18] VITALS: BP_SYST 158
[2018-05-04] MEDS: ASPIRIN 81 MG TABLET(ECOTRIN) PO SCH (08:51)
[2018-05-04] MEDS: PREDNISONE 20 MG TABLET PO SCH (08:51)
[2018-05-04] MEDS: amLODIPine BESYLATE 5 MG TABLET PO SCH (08:53)
[2018-05-04] MEDS: BRIMONIDINE TARTRATE 0.2% 5 mL EYE DROPS OP SCH ×3 (08:53→21:40)
--- NOTE | 2018-05-04 11:25 | NUR ---
PT SIGNED CONSENT FOR THROMBECTOMY ORDERED BY DR VARMA.
[2018-05-04 12:00] VITALS: BP_SYST 136
--- NOTE | 2018-05-04 12:00 | NUR ---
PT GIVEN CHG BATH FOR SURGICAL PROCEDURE.
--- NOTE | 2018-05-04 16:00 | NUR ---
PT TAKEN TO O.R. FOR THROMBECTOMY.
[2018-05-04 16:29] VITALS: BP_SYST 135
[2018-05-04] MEDS ORDERED: ONDANSETRON HCL 4 MG/2 ML VIAL IVP PRN (17:30)
[2018-05-04] MEDS ORDERED: fentaNYL CITRATE/PF 100 MCG/2 ML AMP IVP PRN ×2 (17:30)
[2018-05-04] MEDS ORDERED: MIDAZOLAM HCL 5 MG/ML VIAL (VERSED) IV ONE (17:35)
[2018-05-04] MEDS ORDERED: LIDOCAINE 1% 10 MG/ML, 20 ML MDV ONE (17:35)
[2018-05-04] MEDS ORDERED: PROPOFOL 200MG/ 20ML VIAL (DIPRIVAN) IV ONE (17:35)
[2018-05-04] MEDS ORDERED: NS 1000 ML IV.SOLN IV ONE (17:35)
[2018-05-04] MEDS: NITROGLYCERIN 1 INCH (GM) OINT. TP SCH ×2 (18:00→23:44)
[2018-05-04] MEDS ORDERED: NITROGLYCERIN 1 INCH (GM) OINT. ONE (18:24)
--- NOTE | 2018-05-04 18:32 | NUR ---
PT CAME BACK FROM SURGERY, PT IS AAOX4, C/O NUMBNESS ON HIS R. FINGERS. PER REPORT, MD GAVE PT NUMBING MEDICATION. NITROGLYCEN PAST APPLIED ORDERED BY MD ON THE R. FINGERS. SAFETY PRECAUTION IN PLACE. BED IN LOW POSITION. CALL LIGHT AND TELEPHONE IN REACH. WILL CONT TO MONITOR.
--- NOTE | 2018-05-04 19:01 | NUR ---
CLOSING NOTES, PT HAS BEEN STABLE, PT HAD THROMBECTOMY BY DR VARMA THIS AFTERNOON. PT HAS BEEN STABLE. CONTINUED TO BE ON - LI PER NC. PT'S OWN OXYGEN TANK AT BEDSIDE. SIGN POSTED ON IT NOT TO BE TAKEN AWAY. BP IS WNL AFTER SURGERY. FAMILY AT BEDSIDE. WILL ENDORSE TO NIGHT RN.
--- NOTE | 2018-05-04 19:50 | NUR ---
PM SHIFT ASSESSMENT Received bedside report from day nurse. Patient aox4, vital signs stable. family at bedside. Denies any pain at this time, patient had thrombectomy of right brachial artery earlier. no active bleeding noted to right arm. Patient able to wiggle right fingers, states pain is better after administration of nitroglycerin ointment. Plan of care discussed with patient, verbalized understanding, oriented to use phone and call light for nurse assistance. Safety measures in place, will monitor.
[2018-05-04] MEDS: traZODone HCL 50 MG TABLET (DESYREL) PO SCH (20:01)
[2018-05-04] MEDS: CILOSTAZOL 50 MG TABLET (PLETAL) PO SCH (20:01)
[2018-05-04] MEDS: ATORVASTATIN 20 MG TABLET PO SCH (20:02)
[2018-05-04 20:18] VITALS: BP_SYST 131
--- NOTE | 2018-05-04 21:06 | NUR ---
RN ROUNDS Patient awake, aox4, vital signs stable. No sob noted, remains on 02 4L NC. Patient's due medications administered. Educated on use and side effects of medications, patient verbalized understanding, compliant. Educated on use of incentive spirometer, at least 10 times while awake. Patient able to inspire up to 2000 ml. Patient right hand pain tolerable at this time. Call light within reach, will monitor.
--- NOTE | 2018-05-04 22:03 | NUR ---
RN ROUNDS Patient sleeping, respirations even and unlabored, remains on 02 4L NC. Safety measures in place, call light within reach, will continue to monitor.
[2018-05-04] MEDS: HYDROcodone/ACETAMIN 5-325 MG TAB (NORCO/ VICODIN) PO PRN (23:42)
--- NOTE | 2018-05-04 23:55 | NUR ---
RN ROUNDS Patient awake, c/o of pain to right arm, medicated with norco 1 tab for pain management. Will reassess patient's pain level in an hour. Vitals stable. Due medication of nitropaste applied to fingers of right hand. Patient repositioned for comfort. Call light within reach, will monitor.
--- NOTE | 2018-05-05 02:35 | NUR ---
RN ROUNDS Patient resting quietly at this time, no sob noted, remains on 02 4L NC. Safety precautions in place, call light within reach, will monitor.
--- NOTE | 2018-05-05 04:22 | NUR ---
RN ROUNDS Patient awake, in no distress, right arm pain tolerable at this time. Denies any throbbing. Helped patient reposition for comfort. Safety measures in place, call light within reach, will monitor.
[2018-05-05] MEDS: NITROGLYCERIN 1 INCH (GM) OINT. TP SCH ×3 (05:39→17:38)
[2018-05-05] MEDS: HYDROcodone/ACETAMIN 5-325 MG TAB (NORCO/ VICODIN) PO PRN ×3 (05:53→16:17)
--- NOTE | 2018-05-05 06:06 | NUR ---
RN ROUNDS Patient awake, in no distress, remains on 02 4L NC. C/o of pain to right arm, medicated with [place] 1 tab for pain management. Will reassess patient's pain level. Vitals stable. Due medication of nitro paste applied to fingers of right hand. Patient needs attended to. Bilateral SCDS to lower legs in place. Safety measures in place, call light within reach, will continue to monitor.
[2018-05-05 07:45] VITALS: BP_SYST 139
--- NOTE | 2018-05-05 08:00 | NUR ---
OPENING NOTES, RECEIVED PT IN BED, PT IS AAOX4, C/O OF 5/10 PAIN ON HIS RIGHT ARM, NO SOB, NO RESP DISTRESS. NOTED, L. CHEST PERMACATH DRESSING IS INTACT. NOTED L NECK BRUISING, R. ARM BRUISING AND SWELLING NOTED ALSO, PT'S FINGERS AND NAILS ARE NOW MORE NATURAL COLOR. DR VARMA SAW PT. SAFETY PRECAUTION IN PLACE. CALL LIGHT IN REACH, BED IN LOW POSITION. PT ENCOURAGED TO CALL FOR ASSISTANCE TO BATHROOM AND FOR PAIN MEDICATION. WILL CONT TO MONITOR.
[2018-05-05] MEDS: PREDNISONE 20 MG TABLET PO SCH (08:39)
[2018-05-05] MEDS: CLOPIDOGREL BISULFATE 75 MG TABLET PO SCH ×2 (08:40→08:41)
[2018-05-05] MEDS: BRIMONIDINE TARTRATE 0.2% 5 mL EYE DROPS OP SCH ×2 (08:40→15:00)
[2018-05-05] MEDS: CILOSTAZOL 50 MG TABLET (PLETAL) PO SCH (08:40)
[2018-05-05] MEDS: ASPIRIN 81 MG TABLET(ECOTRIN) PO SCH (08:40)
[2018-05-05] MEDS: amLODIPine BESYLATE 5 MG TABLET PO SCH (08:41)
[2018-05-05 09:56] VITALS: BP_SYST 139
--- NOTE | 2018-05-05 10:24 | NUR ---
HCP/CM: OUTPATIENT HEMODIALYSIS SCHEDULE ARRANGEMENTS PER DIALYSIS NURSE AUDIE AT PHONE NUMBER: [phone]. [address] [facility] [place] [address] PHONE NUMBER: [phone] [id number] CHAIR TIME FROM 5PM-8PM PATIENT DECLINED SNF FOR SHORT TERM REHAB PRIOR TO RETURNING HOME AND SAID VINH SONG LIVES CLOSE BY AND WILL BE HELPING HIM OUT AT HOME AND PER NOHEMI HER BROTHER TAMMY WILL BE COMING AND STAYING WITH THE PATIENT AT HOME. PORTABLE OXYGEN DELIVERED AT BEDSIDE. OXYGEN CONCENTRATOR DELIVERED AT HOME CONFIRMED BY VINH SONG. OFFERED SHORT TERM SNF AGAIN TO VINH SONG AND SHE SAID HER FATHER WILL NOT WANT TO GO TO SNF. [facility] [phone] WILL PROVIDE PHYSICAL THERAPY AND NURSING FOR MEDICATION/OXYGEN TEACHING. PATIENT INITIALLY DECLINED FWW BUT VINH SONG WANTS TO HAVE IT AND WILL PROVIDE A FWW AT BEDSIDE TODAY. VINH SONG IS AWARE OF DISCHARGE ORDER TODAY.
--- NOTE | 2018-05-05 10:32 | NUR ---
PT DAUGHTER REQUESTING THAT DIALYSIS BE DONE TODAY BEFORE PT IS DISCHARGE BECAUSE PT IS BARELY ABLE TO WALK WITH ASSIST AND STILL HAVING PAIN ON HIS ARM. TOLD HERE I WILL CALL MD AGAIN THOUGH THE GUEST LAUNDRY ATTENDANT ALREADY GAVE OK TO DC PT.
--- NOTE | 2018-05-05 10:35 | NUR ---
MD CLIFTON CALLED [facility] AT SPOKE WITH DR.JANDIAL KIMBALL RAJNISH FAMILY LAWYER.
--- NOTE | 2018-05-05 11:03 | NUR ---
SPOKE WITH DR NAQVI RE REQUEST OF PT'S DTR TO HAVE PT DIALYSED HERE TODAY BEFORE DC HOME, DR NAQVI SAID TO ASK DR RENEE, PAGED DR RENEE .
--- NOTE | 2018-05-05 11:25 | NUR ---
HCP/CM: RECEIVED A CALL FROM PATIENT'S DAUGHTER NOHEMI AND SHE HAS CONVINCED THE PATIENT TO GO TO SNF FOR SHORT TERM REHAB. DR. NAQVI IS MADE AWARE. WILL START LOOKING FOR A SNF BED. NURSE WALTER MADE AWARE.
[2018-05-05] MEDS ORDERED: HEPARIN SODIUM,PORCINE 5000 UNITS/ML VIAL IV PRN (12:00)
[2018-05-05 12:54] VITALS: BP_SYST 127
--- NOTE | 2018-05-05 15:00 | NUR ---
2 VIALS HEPARIN PROVIDED TO HD LISET BRONSON FOR PORT FLUSH.
--- NOTE | 2018-05-05 15:18 | NUR ---
HCP/CM: SNF AVAILABILITY: [facility] - ROOM [address] [place] [address] (NURSE TO CALL FOR REPORT) TRANSPORTATION: [facility] ON WILL CALL [phone] (NURSE TO CALL FOR CARBIDE POWDER PROCESSOR TIME)
[2018-05-05 16:39] VITALS: BP_SYST 126
--- NOTE | 2018-05-05 16:52 | NUR ---
PAGED PAGED ROBERTO TUBBS AT [phone] SPOKE WITH LIN.
--- NOTE | 2018-05-05 17:16 | NUR ---
PT GIVEN NITRO-BID; BP IS 126/54 HR 78
--- NOTE | 2018-05-05 18:02 | NUR ---
REPORT GIVEN TO LISET SALAZAR OF [facility] - TEL NO [phone]
[2018-05-05 18:12] VITALS: BP_SYST 126
--- NOTE | 2018-05-05 19:05 | NUR ---
OPENING NOTE RECEIVED PT ENDORSEMENT REPORT FROM DAY SHIFT NURSE AT BEDSIDE. PT IS RESTING IN BED WITH EYES OPEN, SON-IN-LAW AT BEDSIDE.PT AWAITING DISCHARGE. DC PAPERWORK COMPLETTED BY DAY SHIFT NURSE, ALL PAPERWORK, REPORT GIVEN TO DAIVD CORADO ATTENDING NURSE, AND DC INSTRUCTIONS GIVEN AND SIGNED- ALL OF THE ABOVE COMPLETE BY DAY NURSE JAQUI. PT IS AOX4, NO S/S OF SOB OR DISTRESS. PT IS ON O2 4 L/MIN VIA NC, TOLERATING WELL.SATURATING 93-92%. PT HAS IV TO LEFT FA 20G AND LEFT AC 20G BOTH SL. SKIN IS INTACT BRUISING NOTED TO PT'S RIGHT AC AND HAND FROM SHUNT PLACEMENT, MD AWARE. DISCHARGE INSTRUCTIONS DISCUSSED WITH PT. PT INSTRUCTED HOW TO USE CALL LIGHT AND ROOM PHONE, PT VERBALIZED UNDERSTANDING. SAFETY MEASURES IN PLACE, CALL LIGHT AND PHONE WITHIN REACH, BED IN LOWEST POSITION, BED WHEELS LOCKED, SIDE RAILS UP X2, BED ALARM ON, BEDSIDE TABLE WITHIN REACH. NO FURTHER NEEDS AT THIS TIME. WILL CONTINUE TO MONITOR PT AND FOLLOW POC UNTIL DISCHARGED. AMBULANCE ON ITS WAY.
--- NOTE | 2018-05-05 19:23 | NUR ---
CLOSING NOTES, PT ENDORSE TO NIGHT LISET SIDDIQUI, PT WAITING FOR TRANSPORT. PT SIGNED DC INSTRUCTION AND PT BELONGINGS INVENTORY. REPORT HAS BEEN GIVEN TO DAVID SALAZAR. PT REFUSED TO CHANGE TO [place], WANTED TO WEAR HIS HOME CLOTHES. ENDORSED ALSO TO LISET SIDDIQUI TO REMOVE. PT IV ACCESS.
--- NOTE | 2018-05-05 19:25 | NUR ---
RN ROUNDS PT IS RESTING IN BED WITH EYES OPEN. NO S/S OF SOB OR DISTRESS. VITAL SIGNS WNL. SAFETY MEASURES IN PLACE, CALL LIGHT AND PHONE WITHIN REACH, BED IN LOWEST POSITION, BED WHEELS LOCKED, SIDE RAILS UP X2, BED ALARM ON, BEDSIDE TABLE WITHIN REACH. NO FURTHER NEEDS AT THIS TIME. WILL CONTINUE TO MONITOR PT.
[2018-05-05 19:55] VITALS: BP_SYST 104
--- NOTE | 2018-05-05 19:55 | NUR ---
RN ROUNDS PT IS RESTING IN BED WITH EYES OPEN. CHEST RISE EVEN AND UNLABORED. NO S/S OF SOB OR DISTRESS. VITAL SIGNS WNL. SAFETY MEASURES IN PLACE, CALL LIGHT AND PHONE WITHIN REACH, BED IN LOWEST POSITION, BED WHEELS LOCKED, SIDE RAILS UP X2, BED ALARM ON, BEDSIDE TABLE WITHIN REACH. NO FURTHER NEEDS AT THIS TIME. WILL CONTINUE TO MONITOR PT.
--- NOTE | 2018-05-05 19:56 | NUR ---
RN ROUNDS PT IS RESTING IN BED WITH EYES OPEN. IV REMOVED. SAFETY MEASURES IN PLACE, EMT'S AT BEDSIDE.
--- NOTE | 2018-05-05 20:00 | NUR ---
PT DISCHARGED AT 1999, [facility]ID CORAD[facility]. NURSE ENDORSED PT REPORT TO EMT GRAYSON. NURSE REMOVED LEFT FA AND AND LEFT AC IV'S. DAY NURSE CALLED DAVID CORADO AND GAVE REPORT TO NURSE SALAZAR. ALL NEEDS MET BEFORE DISCHARGE.
== END 2018-05-05 20:03 | DRG 166 ==
LOC: SED 12:31 → STU 14:54
PROVIDERS: ADMIT Internal Medicine Hospice and Palliative Medicine; ATTEND Internal Medicine Hospice and Palliative Medicine
PROC: 03170ZD Bypass Right Brachial Artery to Upper Arm Vein, Open Approach (ICD-10-PCS; 2018-05-01)
PROC: 02HV33Z Insertion of Infusion Device into Superior Vena Cava, Percutaneous Approach (ICD-10-PCS; 2018-05-01)
PROC: B5181ZA Fluoroscopy of Superior Vena Cava using Low Osmolar Contrast, Guidance (ICD-10-PCS; 2018-05-01)
PROC: B51W1ZZ Fluoroscopy of Dialysis Shunt/Fistula using Low Osmolar Contrast (ICD-10-PCS; 2018-05-01)
PROC: 5A1D70Z Performance of Urinary Filtration, Intermittent, Less than 6 Hours Per Day (ICD-10-PCS; 2018-05-01)
PROC: 0JH63XZ Insertion of Tunneled Vascular Access Device into Chest Subcutaneous Tissue and Fascia, Percutaneous Approach (ICD-10-PCS; principal; 2018-05-01 08:00)
PROC: 5A1D70Z Performance of Urinary Filtration, Intermittent, Less than 6 Hours Per Day (ICD-10-PCS; 2018-05-03)
PROC: 03773ZZ Dilation of Right Brachial Artery, Percutaneous Approach (ICD-10-PCS; 2018-05-04)
PROC: 037B3ZZ Dilation of Right Radial Artery, Percutaneous Approach (ICD-10-PCS; 2018-05-04)
PROC: 037 Upper Arteries, Dilation (ICD-10-PCS; 2018-05-04)
PROC: 5A1D70Z Performance of Urinary Filtration, Intermittent, Less than 6 Hours Per Day (ICD-10-PCS; 2018-05-05)
DX: J96.01 Acute respiratory failure with hypoxia (principal); N18.6 End stage renal disease; E41 Nutritional marasmus; I12.0 Hypertensive chronic kidney disease with stage 5 chronic kidney disease or end stage renal disease; J44.1 Chronic obstructive pulmonary disease with (acute) exacerbation; Z68.1 Body mass index [BMI] 19.9 or less, adult; J84.9 Interstitial pulmonary disease, unspecified; T82.898A Other specified complication of vascular prosthetic devices, implants and grafts, initial encounter; Y84.1 Kidney dialysis as the cause of abnormal reaction of the patient, or of later complication, without mention of misadventure at the time of the procedure; Y92.238 Other place in hospital as the place of occurrence of the external cause; I44.1 Atrioventricular block, second degree; R91.8 Other nonspecific abnormal finding of lung field; E78.5 Hyperlipidemia, unspecified; Z53.20 Procedure and treatment not carried out because of patient's decision for unspecified reasons; I25.10 Atherosclerotic heart disease of native coronary artery without angina pectoris; E78.00 Pure hypercholesterolemia, unspecified; H40.9 Unspecified glaucoma; Z82.49 Family history of ischemic heart disease and other diseases of the circulatory system; Z85.528 Personal history of other malignant neoplasm of kidney; Z87.891 Personal history of nicotine dependence; Z90.5 Acquired absence of kidney; Z95.1 Presence of aortocoronary bypass graft; Z99.2 Dependence on renal dialysis; Z79.2 Long term (current) use of antibiotics; Z79.82 Long term (current) use of aspirin; Z79.899 Other long term (current) drug therapy
CPT/HCPCS: 36415; 36600; 71045; 71250-TC; 76000; 80048; 80053; 82803-TC; 83735-TC; 83880; 84100-TC; 84484; 85025; 85610-TC; 85730-TC; 86580; 86803; 87081; 87340; 90935; 90937; 93005; 93306; 93922; 94640; 94760; 97110-GP; 97116-GP; 97530-GP; 99285; C1750; C1751; J0610; J0690; J1642; J1644; J1956; J2001; J2250; J2704; J2930; J3490; J7030; J7042; J7512; J7620